=== PATIENT | female | born 1980 | race Caucasian/White ===

== ENCOUNTER 2017-12-26 17:55 | Emergency (ER) | payer OTHER ==
[~2017-12-26] VITALS: Ht 160 cm; Wt 66.7 kg
--- NOTE | 2017-12-26 19:00 | NUR ---
PT PRESENTED TO THE ER WITH A C/O VB. PT TOOK TWO HOME TESTS THAT WERE POSITIVE. PT AMBULATED TO BED #16. CLINIC CMA IS AT THE BEDSIDE.
[2017-12-26] MEDS ORDERED: ACETAMINOPHEN ES 500 MG TABLET ONE (19:13)
--- NOTE | 2017-12-26 19:23 | NUR ---
US IS AT THE BEDSIDE.
[2017-12-26 19:28] LABS: BASOPHILS # (AUTO) 0.1 /CMM (0.0-0.2); BASOPHILS % (AUTO) 0.9 % (0.0-2.0); EOSINOPHILS # (AUTO) 0.2 /CMM (0.0-0.7); EOSINOPHILS % (AUTO) 2.8 % (0.0-6.0); HEMATOCRIT 39 % (33-45); HEMOGLOBIN 13.8 g/dL (11.5-14.8); LYMPHOCYTES # (AUTO) 2.2 /CMM (0.8-4.8); LYMPHOCYTES % (AUTO) 29.5 % (20.0-44.0); MEAN CORPUSCULAR HEMOGLOBIN 32 PG (26.0-33.0); MEAN CORPUSCULAR HGB CONC 35 g/dl (31.0-36.0); MEAN CORPUSCULAR VOLUME 91 fL (82-100); MONOCYTES # (AUTO) 0.9 /CMM (0.1-1.30); MONOCYTES % (AUTO) 11.2 % (2.0-12.0); NEUTROPHILS # (AUTO) 4.2 /CMM (1.8-8.9); NEUTROPHILS % (AUTO) 55.6 % (43.0-81.0); PLATELET COUNT (AUTO) 270 /CMM (150-450); RDW COEFFICIENT OF VARIATION 12.1 (11.5-15.0); RED BLOOD CELL COUNT(AUTO) 4.31 MIL/uL (4.0-5.2); WHITE BLOOD COUNT (AUTO) 7.6 K/uL (4.3-11.0)
[2017-12-26] MEDS ORDERED: ACETAMINOPHEN 325 MG TABLET PO ONE (19:30)
--- NOTE | 2017-12-26 19:47 | NUR ---
URINE SAMPLE OBTAINED AND SENT TO LAB
[2017-12-26 20:18] LABS: APPEARANCE,URINE Slightly Cloudy (CLEAR); BILIRUBIN,URINE Negative (NEGATIVE); BLOOD, URINE Moderate Ery/uL (NEGATIVE); COLOR,URINE Yellow (YELLOW); KETONES,URINE Trace (NEGATIVE); LEUKOCYTE ESTERASE ,URINE Negative (NEGATIVE); NITRITE, URINE Negative (NEGATIVE); PROTEIN,URINE Negative (NEGATIVE); UGLUCOSE Negative (NEGATIVE); UROBILINOGEN,URINE 0.2 EU/dL (0.2)
[2017-12-26 20:35] LABS: BACTERIA,URINE Few /HPF (None Seen); SQUAMOUS EPITHELIAL CELL,UR Few /HPF (None Seen); WBC,URINE 0-2 /HPF (0-3)
[2017-12-26 20:36] LABS: URINE AMORPHOUS PHOSPHATES Few /HPF (None Seen)
--- NOTE | 2017-12-26 20:56 | NUR ---
REDRAW FOR RHOGAM WORKUP DONE BY LAB.
--- NOTE | 2017-12-26 22:20 | NUR ---
WAITING FOR RHOGAM FROM LAB
--- NOTE | 2017-12-26 22:54 | NUR ---
RHOGAM INJECTION 300MG GIVEN IM IN THE RT BUTTOCK. RHOGAM CARD GIVEN TO PT.
--- NOTE | 2017-12-26 22:54 | NUR ---
Patient discharged to home in stable condition. Written and verbal after care instructions given. Patient verbalizes understanding of instruction. PT AMBULATED OUT WITH A STEADY GAIT. VSS.
[2017-12-26 22:59] VITALS: BP 100/59
== END 2017-12-26 23:00 | disposition home or self-care (01) ==
LOC: ER 17:58
DX: O46.91 Antepartum hemorrhage, unspecified, first trimester (principal); R10.2 Pelvic and perineal pain; Z3A.01 Less than 8 weeks gestation of pregnancy
CPT/HCPCS: 36415; 76856-TC; 81000-TC; 84702-TC; 84703-TC; 85025-TC; A4606; P9016-BL; Z7610

== ENCOUNTER 2017-12-29 00:53 | Emergency (ER) | payer OTHER ==
[~2017-12-29] VITALS: Ht 160 cm; Wt 65.8 kg
--- NOTE | 2017-12-29 01:05 | NUR ---
TO BED 16 A 37 YO FEMALE PT BIB [facility] FROM HOME, PT C/O VAGINAL BLEEDING X 4 DAYS AND STATES SHE IS 5 WEEKS . VSS. NAD NOTED. SKIN WARM AND DRY. AMBULATORY. GOWNED. COMFORT MEASURES RENDERED. AWAITING FOR ER MD SAENZ.
--- NOTE | 2017-12-29 01:18 | NUR ---
URINE COLLECTED VIA CLEAN CATCH, CALLED LAB FOR DOG OR ANIMAL SITTER AND TO DRAW BLOOD.
[2017-12-29 01:43] LABS: APPEARANCE,URINE TURBID (CLEAR); BILIRUBIN,URINE NEGATIVE (NEGATIVE); BLOOD, URINE 3+ Ery/uL (NEGATIVE); COLOR,URINE RED (YELLOW); KETONES,URINE TRACE (NEGATIVE); LEUKOCYTE ESTERASE ,URINE 1+ (NEGATIVE); NITRITE, URINE POSITIVE (NEGATIVE); PH,URINE 5.5 (5.0-8.0); PROTEIN,URINE 3+ mg/dl (NEGATIVE); UGLUCOSE NEGATIVE (NEGATIVE)
[2017-12-29 01:43] LABS: BASOPHILS # (AUTO) 0.1 /CMM (0.0-0.2); BASOPHILS % (AUTO) 0.8 % (0.0-2.0); EOSINOPHILS # (AUTO) 0.2 /CMM (0.0-0.7); EOSINOPHILS % (AUTO) 2.2 % (0.0-6.0); HEMATOCRIT 34 % (33-45); HEMOGLOBIN 11.7 g/dL (11.5-14.8); LYMPHOCYTES # (AUTO) 2.6 /CMM (0.8-4.8); LYMPHOCYTES % (AUTO) 27.8 % (20.0-44.0); MEAN CORPUSCULAR HEMOGLOBIN 32 PG (26.0-33.0); MEAN CORPUSCULAR HGB CONC 34 g/dl (31.0-36.0); MEAN CORPUSCULAR VOLUME 93 fL (82-100); MONOCYTES # (AUTO) 1.2 /CMM (0.1-1.30); MONOCYTES % (AUTO) 12.3 % (2.0-12.0); NEUTROPHILS # (AUTO) 5.4 /CMM (1.8-8.9); NEUTROPHILS % (AUTO) 56.9 % (43.0-81.0); PLATELET COUNT (AUTO) 256 /CMM (150-450); RDW COEFFICIENT OF VARIATION 12.9 (11.5-15.0); RED BLOOD CELL COUNT(AUTO) 3.69 MIL/uL (4.0-5.2); WHITE BLOOD COUNT (AUTO) 9.5 K/uL (4.3-11.0)
[2017-12-29 01:52] LABS: BACTERIA,URINE Few /HPF (None Seen); RBC,URINE TOO NUMEROUS TO COUN /HPF (0-2); SQUAMOUS EPITHELIAL CELL,UR Many /HPF (None Seen)
[2017-12-29 01:52] LABS: CALCIUM, SERUM 8.5 mg/dL (8.5-10.1); CREATININE 0.8 mg/dL (0.6-1.3)
[2017-12-29 01:55] LABS: INR 0.94 (0.87-1.13)
[2017-12-29 02:03] LABS: ALBUMIN 3.3 g/dL (3.4-5.0); BILIRUBIN,DIRECT 0.1 mg/dL (0.0-0.2); BILIRUBIN,TOTAL 0.4 mg/dL (0.2-1.0); TOTAL PROTEIN, SERUM 6.6 g/dL (6.4-8.2)
[2017-12-29 03:49] VITALS: BP 118/64
--- NOTE | 2017-12-29 03:49 | NUR ---
Patient discharged to home in stable condition. Written and verbal after care instructions given. Patient verbalizes understanding of instruction. Patient is ambulatoty with steady gait. Accompanied by . vss. nad noted. no further complaints.
== END 2017-12-29 03:50 | disposition home or self-care (01) ==
LOC: ER 00:54
DX: O23.41 Unspecified infection of urinary tract in pregnancy, first trimester (principal); O20.9 Hemorrhage in early pregnancy, unspecified; Z3A.01 Less than 8 weeks gestation of pregnancy
CPT/HCPCS: 36415; 76856; 80048; 80076; 81001; 84702; 85025; 85730; 87086; 99285; A4606; Z7610; 81000-TC

== ENCOUNTER 2018-08-04 16:27 | Emergency (ER) | payer OTHER ==
[~2018-08-04] VITALS: Ht 162.6 cm; Wt 68.0 kg
[2018-08-04 17:21] VITALS: BP 105/65
== END 2018-08-04 17:22 | disposition home or self-care (01) ==
LOC: ER 16:29
DX: R07.89 Other chest pain (principal)
CPT/HCPCS: 71045; 99283; A4606; Z7610

== ENCOUNTER 2019-01-13 20:43 | Emergency (ER) | payer OTHER ==
[~2019-01-13] VITALS: Ht 165.1 cm; Wt 71.4 kg
--- NOTE | 2019-01-13 22:22 | NUR ---
PT BIBSELF C/O THROAT PAIN X 1 WEEK. PATIENT STATES "FEELS LIKE THROAT IS CLOSING. ITS WORSE AT NIGHT TIME". AOX4. NAD NOTED. RESP EVEN AND UNLABORED. PT IN BED 10 WITH FAMILY AT BEDSIDE. WILL CONTINUE TO MONITOR.
[2019-01-13] MEDS ORDERED: IV NS 0.9% 1,000 ML BAG IV ONE (23:30)
[2019-01-13] MEDS ORDERED: KETOROLAC TROMETHAMINE INJ 30 MG/ML VIAL IV ONE (23:30)
--- NOTE | 2019-01-13 23:38 | NUR ---
BLOOD DRAWN AND GIVEN TO LAB
--- NOTE | 2019-01-13 23:38 | NUR ---
URINE COLLECTED AND GIVEN TO LAB
[2019-01-13] MEDS ORDERED: KETOROLAC TROMETHAMINE INJ 30 MG/ML VIAL ONE (23:45)
[2019-01-13 23:48] LABS: BASOPHILS # (AUTO) 0.1 /CMM (0.0-0.2); BASOPHILS % (AUTO) 0.7 % (0.0-2.0); HEMATOCRIT 42 % (33-45); HEMOGLOBIN 14.3 g/dL (11.5-14.8); LYMPHOCYTES # (AUTO) 2.4 /CMM (0.8-4.8); LYMPHOCYTES % (AUTO) 31.4 % (20.0-44.0); MEAN CORPUSCULAR HGB CONC 34 g/dl (31.0-36.0); MEAN CORPUSCULAR VOLUME 92 fL (82-100); MONOCYTES # (AUTO) 0.9 /CMM (0.1-1.30); NEUTROPHILS # (AUTO) 4.2 /CMM (1.8-8.9); NEUTROPHILS % (AUTO) 53.9 % (43.0-81.0); PLATELET COUNT (AUTO) 278 /CMM (150-450); WHITE BLOOD COUNT (AUTO) 7.8 K/uL (4.3-11.0)
[2019-01-13 23:51] LABS: CALCIUM, SERUM 9.2 mg/dL (8.5-10.1); CREATININE 0.8 mg/dL (0.6-1.3); POTASSIUM 3.9 mmol/L (3.5-5.1)
--- NOTE | 2019-01-14 02:02 | NUR ---
Patient is resting comfortably in bed with eyes closed. Easily aroused. VSS.
[2019-01-14 02:43] VITALS: BP 113/70
--- NOTE | 2019-01-14 03:59 | NUR ---
IV removed. Catheter intact and site benign. Pressure and 4x4 applied to site. No bleeding noted.Patient discharged to home in stable condition. Written and verbal after care instructions given. Patient verbalizes understanding of instruction. PT AMBULATORY WITH STEADY GAIT.
== END 2019-01-14 04:04 | disposition home or self-care (01) ==
LOC: ER 20:48
DX: J02.9 Acute pharyngitis, unspecified (principal); R13.10 Dysphagia, unspecified
CPT/HCPCS: 36415; 70491; 80048; 84703; 85025; 96374; 99284; A4606; J1885; J7030